=== PATIENT | female | born 1995 | race Caucasian/White ===

== ENCOUNTER 2019-07-21 19:40 | Emergency (ER) | payer BC ==
[2019-07-21 19:46] VITALS: BP 117/73; PULSE 85; TEMP 98.3; BMI 22.6
[2019-07-21] MEDS ORDERED: ALBUTEROL SO4 0.5 % INH SOLN 2.5 MG/0.5 ML VIAL.NEB. NEB ONE (21:00)
[2019-07-21] MEDS ORDERED: ALBUTEROL SO4 0.083% IH SOL 2.5 MG/3 ML VIAL.NEB. NEB ONE (21:03)
[2019-07-21] MEDS ORDERED: MONTELUKAST NA 10 MG TABLET PO ONE (22:54)
--- NOTE | 2019-07-22 00:57 | PDOC ---
Documentation entered by Indira Garrett SCRIBE, acting as scribe for Amarilys Figueroa MD. Amarilys Figueroa MD: This documentation has been prepared by the Gerry ramires Maria, SCRIBE, under my direction and personally reviewed by me in its entirety. I confirm that the documentation accurately reflects all work, treatment, procedures, and medical decision making performed by me. History of Present Illness - General Chief Complaint: Respiratory Stated Complaint: FEELING SOB Time Seen by Provider: 07/21/19 19:49 - History of Present Illness Initial Comments: 07/21/19 21:18 Patient is a 23 year old with a significant past medical history of lyme disease and asthma who presents to the ED with intermittent chest tightness. As per patient she states that 5 years ago she began to have intermittent chest tightness and pressure, she describes it as a constant feeling of yawning, she reports going to her PCP with her symptoms and was diagnosed with sports induced asthma. She reports for the last year these symptoms have been constant and are followed with a panic attack. Pt states she was up last night until 5: 30am due to difficulty breathing and being unable to take deep breaths she also c/o associated rib pain. She denies recent fevers, chills, headache or dizziness. She denies recent nausea, vomiting, diarrhea or constipation. She denies recent dysuria, frequency, urgency or hematuria. She denies recent chest pain or shortness of breath. Allergies: NKDA Past surgical history: None reported. Social history: Occasional ETOH use. Occasional recreational drug use. Past History - Past Medical History Allergies/Adverse Reactions: Allergies Allergy/AdvReac Type Severity Reaction Status Date / Time No Known Allergies Allergy Unverified 07/21/19 19:41 Home Medications: Ambulatory Orders Albuterol Sulfate Inhaler - [Ventolin HFA Inhaler -] 1 - 2 inh PO QID PRN #1 inhaler 07/21/19 Elagolix Sodium [Orilissa] 150 mg PO DAILY 07/21/19 Montelukast Na [Singulair -] 10 mg PO HS #14 tablet 07/21/19 Norgestimate-Ethinyl Estradiol [Tri Femynor 28 Tablet] 1 each PO DAILY 07/21/19 COPD: No Other medical history: LYME - Psycho Social/Smoking Cessation Hx Smoking History: Never smoked Review of Systems - Review of Systems Able to Perform ROS?: Yes Comments:: 07/21/19 21:18 CONSTITUTIONAL: Absent: fever, chills, diaphoresis, generalized weakness, malaise, loss of appetite HEENT:+scattered erythematous postuls. Absent: rhinorrhea, nasal congestion, throat pain, throat swelling, difficulty swallowing, mouth swelling, ear pain, eye pain, visual Changes CARDIOVASCULAR: Absent: chest pain, syncope, palpitations, irregular heart rate, lightheadedness , peripheral edema RESPIRATORY: +fair air breath sounds Absent: cough, shortness of breath, dyspnea with exertion, orthopnea, wheezing, stridor, hemoptysis GASTROINTESTINAL: Absent: abdominal pain, abdominal distension, nausea, vomiting, diarrhea, constipation, melena, hematochezia GENITOURINARY: Absent: dysuria, frequency, urgency, hesitancy, hematuria, flank pain, genital pain MUSCULOSKELETAL: Absent: myalgia, arthralgia, joint swelling SKIN: Absent: rash, itching, pallor HEMATOLOGIC/IMMUNOLOGIC: Absent: easy bleeding, easy bruising, lymphadenopathy, frequent infections ENDOCRINE: Absent: unexplained weight gain, unexplained weight loss, heat intolerance, cold intolerance NEUROLOGIC: Absent: headache, focal weakness or paresthesias, dizziness, unsteady gait, seizure, mental status changes, bladder or bowel incontinence PSYCHIATRIC: Absent: anxiety, depression, suicidal or homicidal ideation, hallucinations. *Physical Exam - Vital Signs Last Vital Signs Temp Pulse Resp BP Pulse Ox 98.3 F 85 16 117/73 100 07/21/19 19:43 07/21/19 19:43 07/21/19 19:43 07/21/19 19:43 07/21/19 19:43 - Physical Exam 07/21/19 21:18 GENERAL: Well developed, well nourished. Awake and alert. No acute distress. HEENT: Normocephalic, atraumatic. PERRLA, EOMI. No conjunctival pallor. Sclera are non- icteric. Moist mucous membranes. Oropharynx is clear. NECK: Supple. Full ROM. No JVD. Carotid pulses 2+ and symmetric, without bruits. No thyromegaly. No lymphadenopathy. CARDIOVASCULAR: Regular rate and rhythm. No murmurs, rubs, or gallops. Distal pulses are 2+ and symmetric. PULMONARY: No evidence of respiratory distress. Lungs clear to auscultation bilaterally. No wheezing, rales or rhonchi. ABDOMINAL: Soft. Non-tender. Non-distended. No rebound or guarding. No organomegaly. Normoactive bowel sounds. MUSCULOSKELETAL Normal range of motion at all joints. No bony deformities or tenderness. No CVA tenderness. EXTREMITIES: No cyanosis. No clubbing. No edema. No calf tenderness. SKIN: Warm and dry. Normal capillary refill. No rashes. No jaundice. NEUROLOGICAL: Alert, awake, appropriate. Cranial nerves 2-12 intact. No deficits to light touch and temperature in face, upper extremities and lower extremities. No motor deficits in the in face, upper extremities and lower extremities. Normoreflexic in the upper and lower extremities. Normal speech. Toes are down- going bilaterally. Gait is normal without ataxia. PSYCHIATRIC: Cooperative. Good eye contact. Appropriate mood and affect. Medical Decision Making - Medical Decision Making As noted above, this 23-year-old woman, student at nearby college, presents with her mother with recent exacerbation of chronic (several year) symptom of shortness of breath. In the past , patient would have intermittent sensation of difficulty breathing, not clearly triggered by any particular activity or allergen. She had been diagnosed as having exercise-induced asthma and given an inhaler but no further work-up was taken. Recently (last few months), sensation became more frequent. She does not experience wheezing but sensation that she cannot take a deep breath. She has had no recent acute infections or exposure to new allergens. There is been no recent fevers or cough. Exam as noted. Although the patient had no wheezing or other abnormal sounds on lung exam, she was breathing very shallowly. No other abnormality noted except for very mild epigastric tenderness. Peak flow readings were between 250 and 300 L/min (somewhat lower than the expected 400 L/minute for her age and height) Albuterol nebulizer treatment given. Patient felt somewhat better and lung exam revealed much better air exchange bilaterally. Patient was still concerned that she may have some structural component contributing to her shortness of breath and requested chest x-ray. Chest x-ray, PA and lateral performed: Preliminary interpretation by eric evidence of acute pulmonary abnormality; vascular and bones also appear normal. Results discussed with the patient. Although the patient does not have actual wheezing, mild bronchospasm may be present. Actual cause of the bronchospasm is less clear. Also, there may be an element of anxiety that enhances the sensation of shortness of breath. In any case, patient requires more work-up as an outpatient. The patient does not have a doctor here (patient is from [place]). Referral information for Dr. Keith given to the patient. Meanwhile , prescriptions for albuterol inhaler to be used as needed for shortness of breath as well as Singulair 10 mg daily sent to her pharmacy. She should return to the ER if she has acute persistent shortness of breath or develops fever/severe cough. Discharge - Discharge Information Problems reviewed: Yes Clinical Impression/Diagnosis: Asthma, mild intermittent Qualifiers: Asthma complication type: uncomplicated Qualified Code(s): J45.20 - Mild intermittent asthma, uncomplicated Condition: Stable Disposition: HOME - Additional Discharge Information Prescriptions: Albuterol Sulfate Inhaler - [Ventolin HFA Inhaler -] 1 - 2 inh PO QID PRN #1 inhaler PRN Reason: Shortness Of Breath Montelukast Na [Singulair -] 10 mg PO HS #14 tablet - Follow up/Referral Referrals: ON STAFF,NOT [Primary Care Provider] - Sheryl Keith MD [Staff Physician] - - Patient Discharge Instructions Patient Printed Discharge Instructions: DI for Shortness of Breath Additional Instructions: Singulair 10 mg daily Albuterol inhaler 1 to 2 puffs every 4-6 hours as needed for shortness of breath /wheezing Call 's office in a.m. and arrange follow-up within the next 5 to 7 days Return to ER if you have prolonged or severe episode of shortness of breath or you experience wheezing - Post Discharge Activity
== END 2019-07-21 23:03 | disposition home or self-care (01) ==
LOC: FER 19:40
PROC: 3E0F7GC Introduction of Other Therapeutic Substance into Respiratory Tract, Via Natural or Artificial Opening (ICD-10-PCS; principal; 2019-07-21)
DX: J45.20 Mild intermittent asthma, uncomplicated (principal)
CPT/HCPCS: 71046-TC-FY; 99281-25